=== PATIENT | female | born 1945 | race Two or more races ===

== ENCOUNTER 2021-03-13 23:53 | Emergency (ER) | payer OTHER ==
[~2021-03-13] VITALS: Ht 165.1 cm; Wt 73.9 kg
[2021-03-14] MEDS ORDERED: LOSARTAN POTASS50 MG (02:23)
[2021-03-14] MEDS ORDERED: DICLOFENAC SOD150 ML (02:24)
== END 2021-03-14 | disposition home or self-care (01) ==
LOC: ER 23:53
DX: M25.462 Effusion, left knee (principal); R55 Syncope and collapse

== ENCOUNTER 2023-10-01 09:15 | Outpatient (CLI) | payer OTHER ==
[~2023-10-01 09:15] MED LIST: DICLOFENAC SOD150 ML; LOSARTAN POTASS50 MG
== END 2023-10-01 09:22 | disposition home or self-care (01) ==
LOC: SONOGRAMA 09:15
PROVIDERS: ATTEND Specialist
DX: K40.90 Unilateral inguinal hernia, without obstruction or gangrene, not specified as recurrent (principal)